=== PATIENT | female | born 1975 | race African-American/Black ===

== ENCOUNTER 2019-06-20 00:40 | Observation (INO) ==
[2019-06-20 01:40] LABS: Eosinophils % 0.5 % (0.00-10.9); Immature Granulocytes % 0.3 %; Immature Granulocytes Absolute 0.02 #; Lymphocytes # 1.7 10*3/uL (1.4-4.0); Lymphocytes % 29.1 % (21.3-54.2); Mean Corpuscular HGB Conc 21.6 GM/DL (32-36); Mean Corpuscular Volume 54.2 FL (87-102); Mean Platelet Volume 10.5 FL (9.6-12.0); Monocytes % 6.7 % (1.7-12.7); Neutrophils % 63.4 % (38.7-73.9); Platelet Count 241 T/CUMM (130-400); Red Blood Count 1.79 MC/CUMM (3.8-5.5); White Blood Count 5.8 T/CUMM (4-12)
[2019-06-20 01:45] LABS: Albumin 3.3 G/DL (3.4-5.0); Bilirubin,Total 0.4 MG/DL (0.2-1.0); Calcium 8.4 MG/DL (8.5-10.1); Osmolality,Calculated 280.1 MOS/KG (273-304); Total Protein 7.3 G/DL (6.4-8.3)
[2019-06-20 01:58] LABS: Hematocrit 9.7 VOL% (35.7-47.0); Hemoglobin 2.1 GM/DL (12.0-16.0)
[2019-06-20] MEDS ORDERED: POTASSIUM CHLORIDE 20 MEQ/15 ML UDCUP PO ONE (02:10)
[2019-06-20] MEDS ORDERED: ACETAMINOPHEN 325 MG TABLET PO PRN (02:22)
[2019-06-20] MEDS ORDERED: SODIUM CHLORIDE 0.9% 1,000 ML IV PRN ×3 (02:28→17:28)
[2019-06-20] MEDS: FERROUS SULFATE 325 MG TABLET PO SCH ×3 (08:32→20:28)
[2019-06-20] MEDS: PANTOPRAZOLE 40 MG TABLET PO SCH (08:32)
[2019-06-20] MEDS ORDERED: JENCYCLA PO SCH (09:00)
[2019-06-20 09:30] LABS: Calcium 8.4 MG/DL (8.5-10.1); Osmolality,Calculated 279.1 MOS/KG (273-304)
[2019-06-20] MEDS ORDERED: ONDANSETRON 4 MG/2 ML VIAL IV PRN (10:58)
[2019-06-20] MEDS ORDERED: SERTRALINE 25 MG TABLET PO SCH ×2 (13:30→21:00)
[2019-06-20] MEDS: NICOTINE 21 MG/24 HR PATCH TRANSDERM SCH (15:33)
[2019-06-20] MEDS: POTASSIUM CHLORIDE INJ 40 MEQ in SODIUM CHLORIDE 0.9% 1,000 ML IV SCH ×2 (15:42→17:39)
[2019-06-20 16:49] LABS: Basophils % 0.3 % (0.0-0.8); Eosinophils % 0.2 % (0.00-10.9); Hematocrit 22.4 VOL% (35.7-47.0); Hemoglobin 6.8 GM/DL (12.0-16.0); Immature Granulocytes % 0.8 %; Immature Granulocytes Absolute 0.05 #; Lymphocytes # 1.4 10*3/uL (1.4-4.0); Lymphocytes % 23.3 % (21.3-54.2); Mean Corpuscular HGB Conc 30.4 GM/DL (32-36); Mean Corpuscular Volume 73.2 FL (87-102); Monocytes % 4.7 % (1.7-12.7); NRBC # 0.02 10*3/uL; Neutrophils % 70.7 % (38.7-73.9); Platelet Count 165 T/CUMM (130-400); Red Blood Count 3.06 MC/CUMM (3.8-5.5)
[2019-06-20] MEDS: NON-FORMULARY MEDICATION PO SCH (20:29)
[2019-06-21 06:13] LABS: Basophils % 0.6 % (0.0-0.8); Eosinophils % 0.8 % (0.00-10.9); Hematocrit 25.6 VOL% (35.7-47.0); Hemoglobin 7.8 GM/DL (12.0-16.0); Immature Granulocytes % 1.6 %; Immature Granulocytes Absolute 0.08 #; Lymphocytes # 1.2 10*3/uL (1.4-4.0); Lymphocytes % 24.1 % (21.3-54.2); Mean Corpuscular HGB Conc 30.5 GM/DL (32-36); Monocytes % 6.7 % (1.7-12.7); NRBC # 0.02 10*3/uL; Neutrophils % 66.2 % (38.7-73.9); Platelet Count 154 T/CUMM (130-400); Red Blood Count 3.37 MC/CUMM (3.8-5.5); White Blood Count 4.9 T/CUMM (4-12)
[2019-06-21 06:35] LABS: Hypochromasia 2+; Ovalocytes Slight; Platelet Estimate Adequate
[2019-06-21 06:42] LABS: Calcium 8.2 MG/DL (8.5-10.1)
[2019-06-21 06:45] LABS: % Iron Saturation 38.4 % (18-50); Ferritin 5.7 ng/ml (8-252)
[2019-06-21 06:55] LABS: Folate 4.3 NG/ML (5.4-24.0); Vitamin B12 483 PG/ML (211-911)
[2019-06-21 07:30] LABS: Sedimentation Rate-Westergren 15 MM/HR (0-20)
[2019-06-21] MEDS: PANTOPRAZOLE 40 MG TABLET PO SCH (08:02)
[2019-06-21] MEDS: FERROUS SULFATE 325 MG TABLET PO SCH (08:02)
[2019-06-21] MEDS: NON-FORMULARY MEDICATION PO SCH (08:05)
[2019-06-21] MEDS: NICOTINE 21 MG/24 HR PATCH TRANSDERM SCH (08:12)
[2019-06-21] MEDS ORDERED: FOLIC ACID 1 MG TABLET PO SCH (09:00)
[2019-06-21] MEDS ORDERED: DOCUSATE SODIUM 100 MG CAPSULE PO SCH (09:00)
[2019-06-21 09:26] LABS: Hemoglobin A1 (Alkaline) 97.3 % (96.5-98.5); Hemoglobin A2 (Alkaline) 2.7 % (1.5-3.5)
[2019-06-21] MEDS: POTASSIUM CHLORIDE INJ 40 MEQ in SODIUM CHLORIDE 0.9% 1,000 ML IV SCH (09:28)
[2019-06-21] MEDS ORDERED: SODIUM CHLOR 0.9% KCL 40 MEQ 40 MEQ/1,000 ML BAG IV SCH (09:30)
[2019-06-21 11:34] VITALS: BP 120/70
== END 2019-06-21 13:15 | disposition home or self-care (01) ==
LOC: N.EDINP 00:40 → N.ED 00:40 → SUATTDRO 02:22 → N.ICU 02:46 → N.4E 19:51
PROVIDERS: ADMIT Emergency Medicine; ATTEND Hospitalist

== ENCOUNTER 2020-08-29 10:38 | Observation (INO) ==
[2020-08-29 11:37] LABS: Bilirubin,Total 0.4 MG/DL (0.2-1.0); Calcium 8.8 MG/DL (8.5-10.1); Osmolality,Calculated 274.5 MOS/KG (273-304); Total Protein 8.1 G/DL (6.4-8.3)
[2020-08-29 11:50] LABS: Basophils % 0.5 % (0.0-0.8); Eosinophils # 0.1 10*3/uL (0.0-0.87); Eosinophils % 1.8 % (0.00-10.9); Hematocrit 18.3 VOL% (35.7-47.0); Immature Granulocytes % 0.5 %; Immature Granulocytes Absolute 0.02 #; Lymphocytes # 1.3 10*3/uL (1.4-4.0); Lymphocytes % 32.5 % (21.3-54.2); Mean Corpuscular HGB Conc 23.5 GM/DL (32-36); Mean Platelet Volume 9.8 FL (9.6-12.0); Monocytes % 6.3 % (1.7-12.7); NRBC # 0.02 10*3/uL; Neutrophils % 58.4 % (38.7-73.9); Platelet Count 328 T/CUMM (130-400); Red Blood Count 3.33 MC/CUMM (3.8-5.5); Red Cell Distribution Width 21.2 % (9.3-17.3); White Blood Count 3.9 T/CUMM (4-12)
[2020-08-29 11:52] LABS: Hemoglobin 4.3 GM/DL (12.0-16.0)
[2020-08-29 11:55] LABS: Eosinophils 1 % (0-10); Lymphocytes 29 % (20-55); Platelet Estimate Adequate; Segmented Neutrophils 66 % (50-85); Total Cells Counted 100
[2020-08-29 11:56] LABS: Hypochromasia 2+; Microcytosis Slight
[2020-08-29] MEDS ORDERED: SODIUM CHLORIDE 0.9% 1,000 ML IV STA (12:23)
[2020-08-29 13:26] LABS: Bilirubin,Urine Negative (Negative); Blood, Urine Small mg/dL (Negative); Glucose,Urine (UA) Negative (Negative); Hyaline Casts,Urine 1 /LPF (0-3); Ketones,Urine Negative (Negative); Mucus,Urine Many /LPF (Occasional); Nitrite,Urine Negative (Negative); Protein,Urine Negative; RBC,Urine 2 /HPF (0-4); Squamous Epithelial Cell,Urine Occasional /HPF (0-10); Urine Appearance CLEAR (Clear); Urine Color Yellow (Yellow); Urine Specific Gravity 1.018 (1.001-1.035); Urine Urobilinogen < 2.0 EU/DL (0.2-1.0); WBC,Urine 1 /HPF (0-6)
[2020-08-29 13:29] LABS: % Iron Saturation 1.6 % (18-50); Ferritin 0.7 ng/ml (8-252)
[2020-08-29 13:38] LABS: Folate 6.8 NG/ML (5.4-24.0)
[2020-08-29] MEDS ORDERED: BISACODYL 10 MG SUPP RECTAL PRN (15:19)
[2020-08-29] MEDS ORDERED: SODIUM CHLORIDE 0.9% 1,000 ML IV PRN (15:19)
[2020-08-29] MEDS ORDERED: MAGNESIUM HYDROXIDE SUSP 30 ML UDCUP PO PRN (15:19)
[2020-08-29] MEDS ORDERED: SODIUM CHLORIDE 0.9% 1,000 ML IV SCH (15:19)
[2020-08-29] MEDS ORDERED: IBUPROFEN 800 MG TABLET PO PRN (15:19)
[2020-08-29] MEDS ORDERED: ACETAMINOPHEN 325 MG TABLET PO PRN (15:19)
[2020-08-29] MEDS ORDERED: ONDANSETRON 4 MG/2 ML VIAL IV PRN (15:19)
[2020-08-29] MEDS: DOCUSATE SODIUM 100 MG CAPSULE PO SCH (21:00)
[2020-08-30 05:43] LABS: Basophils % 0.9 % (0.0-0.8); Eosinophils # 0.1 10*3/uL (0.0-0.87); Eosinophils % 2.3 % (0.00-10.9); Immature Granulocytes % 0.2 %; Immature Granulocytes Absolute 0.01 #; Lymphocytes # 1.3 10*3/uL (1.4-4.0); Lymphocytes % 29.9 % (21.3-54.2); Mean Corpuscular HGB Conc 28.9 GM/DL (32-36); Mean Corpuscular Volume 67.1 FL (87-102); Mean Platelet Volume 9.7 FL (9.6-12.0); Neutrophils % 59.7 % (38.7-73.9); White Blood Count 4.4 T/CUMM (4-12)
[2020-08-30 05:44] LABS: Red Blood Count 4.17 MC/CUMM (3.8-5.5)
[2020-08-30 05:45] LABS: Hemoglobin 8.1 GM/DL (12.0-16.0); Platelet Count 233 T/CUMM (130-400)
[2020-08-30 07:16] VITALS: BP 103/71
[2020-08-30] MEDS: DOCUSATE SODIUM 100 MG CAPSULE PO SCH (09:12)
== END 2020-08-30 12:00 | disposition home or self-care (01) ==
LOC: N.ED 10:38 → N.EDINP 12:32 → INTOOBSV 12:32 → N.OB 15:06
PROVIDERS: ADMIT Obstetrics & Gynecology; ATTEND Obstetrics & Gynecology